=== PATIENT | male | born 1990 | race Caucasian/White ===

== ENCOUNTER 2018-02-17 10:50 | Emergency (ER) | payer OTHER ==
[2018-02-17 11:32] LABS: BASOPHILS % (AUTO) 0.7 %; EOSINOPHILS # (AUTO) 0.1 10^3/uL (0.0-0.7); EOSINOPHILS % (AUTO) 2.1 %; HGB - HEMOGLOBIN 15.2 g/dL (14.0-18.0); LYMPHOCYTES # (AUTO) 1.6 10^3/uL (1.5-3.5); LYMPHOCYTES % (AUTO) 23.7 %; MEAN CORPUSCULAR HEMOGLOBIN 29.7 pg (27.0-31.0); MEAN CORPUSCULAR HGB CONC 35.3 g/dL (32.0-36.0); MEAN CORPUSCULAR VOLUME 84.1 fL (80.0-94.0); MEAN PLATELET VOLUME 7.1 fL (7.4-11.4); MONOCYTES # (AUTO) 0.3 10^3/uL (0.0-1.0); MONOCYTES % (AUTO) 4.8 %; NEUTROPHILS # (AUTO) 4.6 10^3/uL (1.5-6.6); NEUTROPHILS % (AUTO) 68.7 %; PLT - PLATELET COUNT 253 10^3/uL (130-450); RED BLOOD COUNT 5.11 10^6/uL (4.70-6.10); RED CELL DISTRIBUTION WIDTH 12.9 % (12.0-15.0); WHITE BLOOD COUNT 6.7 x10^3/uL (4.8-10.8)
[2018-02-17 11:48] LABS: ALBUMIN 4.7 g/dL (3.2-5.5); ALBUMIN/GLOBULIN RATIO 1.3 (1.0-2.2); CALCIUM 9.9 mg/dL (8.5-10.3); CREATININE 0.9 mg/dL (0.6-1.2); TOTAL PROTEIN 8.2 g/dL (6.7-8.2)
[2018-02-17] MEDS ORDERED: ONDANSETRON ODT 4 MG TABLET TL STA (13:00)
--- NOTE | 2018-02-17 13:05 | ED Physician Documentation ---
PD HPI NVD - Stated complaint Stated Complaint: ABD PX/N/VD - Chief complaint Chief Complaint: Abd Pain - History obtained from History obtained from: Patient - History of Present Illness Timing - onset: Enter time (1200), Last night Timing - duration: Hours Timing - details: Abrupt onset, Still present Associated symptoms: Loss of appetite, Other (diarrhea and vomiting) Contributing factors: Other (excessive food at the [employer] [place] yesterday) Improved by: Laying still, Vomiting Worsened by: Eating Similar symptoms before: Diagnosis (gastroenteritis) Recently seen: Not recently seen - Additonal information Additional information: 27-year-old male went [place] [employer] [place] yesterday and ate too much. He felt well when he went to bed but awoke about midnight and felt horrible. He had nausea he vomited and has had diarrhea. He states that he took some medication he got at the drugstore for the diarrhea and that seems to have resolved. He continues to have some nausea. He has been able to drink a lot of fluids today but is still nauseated. Review of Systems Constitutional: reports: Fatigue. denies: Fever, Chills Eyes: denies: Decreased vision Ears: denies: Ear pain Nose: denies: Congestion Throat: denies: Sore throat Cardiac: denies: Chest pain / pressure, Palpitations Respiratory: denies: Dyspnea, Cough GI: reports: Nausea, Vomiting, Diarrhea. denies: Abdominal Pain : denies: Dysuria, Frequency Skin: denies: Rash Musculoskeletal: denies: Neck pain, Back pain, Extremity pain PD PAST MEDICAL HISTORY - Past Surgical History Past Surgical History: No - Present Medications Home Medications: Ambulatory Orders Medication Instructions Recorded Confirmed Ondansetron Odt [Zofran] 4 mg TL Q6H PRN #10 tablet 02/17/18 - Allergies Allergies/Adverse Reactions: Allergies Allergy/AdvReac Type Severity Reaction Status Date / Time No Known Drug Allergies Allergy Verified 02/17/18 10:58 - Social History Does the pt smoke?: No Smoking Status: Never smoker Does the pt drink ETOH?: No Does the pt have substance abuse?: No - Immunizations Immunizations are current?: Yes PD ED PE NORMAL - Vitals Vital signs reviewed: Yes (hypertensive) - General General: Alert and oriented X 3, No acute distress, Well developed/nourished, Other (The patient has frequent eructations when he sits up ) - HEENT HEENT: Atraumatic, PERRL, EOMI - Neck Neck: Supple, no meningeal sign, No bony TTP - Cardiac Cardiac: RRR, No murmur - Respiratory Respiratory: No respiratory distress, Clear bilaterally - Abdomen Abdomen: Soft, Non tender - Back Back: No CVA TTP, No spinal TTP - Derm Derm: Normal color, Warm and dry, No rash - Extremities Extremities: No deformity, No edema - Neuro Neuro: Alert and oriented X 3, 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0 Absolute Nucleated RBC 0.00 Nucleated RBC % 0.0 Sodium 138 Potassium 3.7 Chloride 101 Carbon Dioxide 27 Anion Gap 10.0 BUN 11 Creatinine 0.9 Estimated GFR (MDRD) 100 Glucose 98 Calcium 9.9 Total Bilirubin 1.0 AST 31 ALT 46 Alkaline Phosphatase 57 Total Protein 8.2 Albumin 4.7 Globulin 3.5 Albumin/Globulin Ratio 1.3 Lipase 27 Procedures - IVC sono (time) 1300 Bedside IVC sono: IVC measures (cm) (1.41), IVC collapsed c insp (cm) (complete) , Dehydration (mild est < 1liter deficit) PD MEDICAL DECISION MAKING - ED course Complexity details: reviewed results, re-evaluated patient, considered differential, d/w patient ED course: 27-year-old male was gluttenous yesterday at the [employer] fest and today he continues to have some nausea and frequent eructations. He is administered Zofran sublingually and he has only mildly dehydrated on interrogation of the inferior vena cava. His electrolytes are normal. We will not need to supply intravenous fluids today. - Sepsis Event Vital Signs: Vital Signs - 24 hr 02/17/18 10:55 Temperature 36.6 C Heart Rate 79 Respiratory 20 Rate Blood Pressure 148/92 H O2 Saturation 99 Oxygen O2 Source Room air Departure - Departure Disposition: Home, Self Care Clinical Impression: Gastroenteritis Condition: Stable Instructions: ED Gastroenteritis Vs Food Poison Follow-Up: SANDRA Kern [Provider Group] Prescriptions: Ondansetron Odt [Zofran] 4 mg TL Q6H PRN #10 tablet PRN Reason: Nausea / Vomiting Forms: Activity restrictions
[2018-02-17 13:17] VITALS: BP 122/85
== END 2018-02-17 13:18 | disposition home or self-care (01) ==
LOC: ED 10:50
DX: K52.9 Noninfective gastroenteritis and colitis, unspecified (principal); E86.0 Dehydration
CPT/HCPCS: 36415; 80053; 83690; 85025; 99283; Q0162

== ENCOUNTER 2018-04-21 09:11 | Outpatient (CLI) | payer OTHER | END 2018-04-21 09:12 | disposition home or self-care (01) | LOC: SC 09:11 | PROVIDERS: ATTEND Internal Medicine Pulmonary Disease | DX: R53.83 Other fatigue (principal); G47.10 Hypersomnia, unspecified | CPT/HCPCS: 99203; 99212 ==

== ENCOUNTER 2018-05-30 20:04 | Outpatient (CLI) | payer OTHER | END 2018-05-30 20:05 | disposition home or self-care (01) | LOC: SC 20:04 | PROVIDERS: ATTEND Internal Medicine Pulmonary Disease | DX: G47.10 Hypersomnia, unspecified (principal); R53.83 Other fatigue; G47.8 Other sleep disorders; G47.00 Insomnia, unspecified | CPT/HCPCS: 95810 ==

== ENCOUNTER 2018-06-23 09:43 | Outpatient (CLI) | payer OTHER | END 2018-06-23 09:44 | disposition home or self-care (01) | LOC: SC 09:43 | PROVIDERS: ATTEND Nurse Practitioner Family | DX: R53.83 Other fatigue (principal); I49.9 Cardiac arrhythmia, unspecified | CPT/HCPCS: 99212; 99214 ==

== ENCOUNTER 2018-11-03 04:45 | Emergency (ER) | payer OTHER ==
--- NOTE | 2018-11-03 04:56 | ED Physician Documentation ---
History of Present Illness - Stated complaint Stated Complaint: VOMITING - Chief complaint Chief Complaint: Abd Pain - History obtained from History obtained from: Patient - History of Present Illness Timing: Prior to arrival - Additonal information Additional information: Patient is a previously healthy 28-year-old male presenting with sudden onset of nausea, vomiting, and diarrhea at approximately 2 AM today. Patient denies presence of blood in vomitus or stool. Patient denies new foods, medications, or other known exposures. Patient reports that he had pizza and a salad for dinner last night. He also reports recent travel from [place]. Patient denies abdominal pain, urinary changes, fever.Patient has never had abdominal surgery. No other improving or worsening factors noted. Review of Systems Constitutional: denies: Fever GI: reports: Nausea, Vomiting, Diarrhea. denies: Abdominal Pain PD PAST MEDICAL HISTORY - Past Medical History Past Medical History: No - Past Surgical History Past Surgical History: Yes Ortho: Spine surgery - Present Medications Home Medications: Ambulatory Orders Medication Instructions Recorded Confirmed Ondansetron Odt [Zofran] 4 mg TL Q6H PRN #12 tablet 11/03/18 - Allergies Allergies/Adverse Reactions: Allergies Allergy/AdvReac Type Severity Reaction Status Date / Time No Known Drug Allergies Allergy Verified 11/03/18 04:52 - Social History Does the pt smoke?: No Smoking Status: Never smoker Does the pt drink ETOH?: No Does the pt have substance abuse?: No - Immunizations Immunizations are current?: Yes - POLST Patient has POLST: No PD ED PE NORMAL - General General: Alert and oriented X 3, No acute distress, Well developed/nourished - HEENT HEENT: Atraumatic, Moist mucous membranes, Dentition benign - Cardiac Cardiac: RRR, No murmur - Respiratory Respiratory: No respiratory distress, Clear bilaterally - Abdomen Abdomen: Normal bowel sounds, Soft, Non tender, Non distended - Derm Derm: Normal color, Warm and dry, No rash - Extremities Extremities: No deformity, No tenderness to palpate - Neuro Neuro: Alert and oriented X 3, No motor deficit, No sensory deficit - Psych Psych: Normal mood, Normal affect Results - Vitals Vitals: Vital Signs - 24 hr 11/03/18 11/03/18 04:45 05:40 Temperature 36.0 C L Heart Rate 102 H 84 Respiratory 19 18 Rate Blood Pressure 144/103 H 151/104 H O2 Saturation 100 99 Oxygen O2 Source Room air PD MEDICAL DECISION MAKING - ED course Complexity details: reviewed old records, re-evaluated patient, considered differential, d/w patient ED course: Feel that patient is most likely experiencing a viral illness or food poisoning given sudden onset of nausea, vomiting, diarrhea without abdominal pain just several hours ago. Patient appears well-hydrated on exam and given low suspicion for other etiology such as gallbladder disease, pancreatitis, appendicitis, small bowel obstruction, diverticulitis, AAA, renal disease, UTI, do not feel that patient requires invasive testing, urinalysis, or imaging at this time. Patient agrees. Offered Zofran, which patient accepted. Patient declined Bentyl for any cramping associated with diarrhea. Also discussed other medications such as [id number] Imodium if needed, although recommended allowing diarrhea to resolve itself if possible.Patient received Zofran in ED with significant improvement and he is requesting discharge home. Will plan to provide Zofran prescription for home, as well as a work note, which he also requested. Discussed other supportive cares, return precautions and follow up.Patient comfortable at discharge plan. Departure - Departure Disposition: 01 Home, Self Care Clinical Impression: Vomiting Qualifiers: Vomiting type: unspecified Vomiting Intractability: non-intractable Nausea presence: with nausea Qualified Code(s): R11.2 - Nausea with vomiting, unspecified Diarrhea Qualifiers: Diarrhea type: unspecified type Qualified Code(s): R19.7 - Diarrhea, unspe cified Condition: Good Instructions: ED Diet Vomiting Diarrhea, ED Nausea Vomiting Follow-Up: your,doctor [Other] - Within 3 Days Prescriptions: Ondansetron Odt [Zofran] 4 mg TL Q6H PRN #12 tablet PRN Reason: Nausea / Vomiting Comments: Recommend hydration with Powerade/Gatorade and bland diet. Advance diet as tolerated and otherwise avoid spicy, fried, fatty foods. May use Zofran as prescribed to control nausea and vomiting. May also try Imodium [id number] as needed to help relieve diarrhea. Follow-up with primary care physician in next 2 to 3 days and return to ED sooner if experience worsening symptoms or other concerns. Forms: Activity restrictions
[2018-11-03] MEDS ORDERED: ONDANSETRON ODT 4 MG TABLET TL STA (05:12)
[2018-11-03 05:41] VITALS: BP 151/104
== END 2018-11-03 05:54 | disposition home or self-care (01) ==
LOC: ED 04:45
DX: R11.2 Nausea with vomiting, unspecified (principal); R19.7 Diarrhea, unspecified
CPT/HCPCS: 99283; Q0162